=== PATIENT | female | born 1935 | race Two or more races ===

== ENCOUNTER 2021-06-02 20:03 | Emergency (ER) | payer SELFPAY ==
[~2021-06-02] VITALS: Ht 154.9 cm; Wt 58.3 kg
[2021-06-02 20:17] VITALS: BP 148/74
--- NOTE | 2021-06-02 20:20 | NUR ---
TO LOBBY A/W BED VIA WHEELCHAIR
[2021-06-02 23:05] VITALS: BP 169/89
--- NOTE | 2021-06-02 23:05 | NUR ---
85 YO F BIB SELF WITH C/C OF DIZZINESS X THIS MORNING. PT STATES SHE FEELS FINE, EVERYTHING IS THE SAME MINUS THE DIZZINESS AND A HEADACHE THAT SUBSIDED A FEW HOURS AGO. SHE STATED THAT SHE IS STILL HUNGRY, NO N/V, DENIES SOB. PT STATED SHE HAS BEEN HAVING ON AND OFF L EAR ACHE 5/10, NO CHANGES IN HEARING, NO DRAINAGE. BLOOD SUGAR 101, BP 169/89- PT JUST TOOK BP MEDS. HX: DM AND HTN RX: METFORMIN, GLIBENCLAMIDE, LOSARTAN, AMLODIPINE, CLONAZEPAM ALLERG DENIES
--- NOTE | 2021-06-02 23:49 | NUR ---
URINE TAKEN TO LAB.
[2021-06-02 23:55] LABS: BASOPHILS # (AUTO) 0.1 K/uL (0.00-0.22); BASOPHILS % (AUTO) 0.9 % (0.0-2.0); EOSINOPHILS # (AUTO) 0.2 K/uL (0-0.4); EOSINOPHILS % (AUTO) 2.3 % (0.0-4.0); HEMATOCRIT 37.1 % (36-48); HEMOGLOBIN 12.3 g/dL (12.0-16.0); LYMPHOCYTES # (AUTO) 3.5 K/uL (2.5-16.5); LYMPHOCYTES % (AUTO) 37.6 % (20.5-51.1); MEAN CORPUSCULAR HEMOGLOBIN 29 pg (27-31); MEAN CORPUSCULAR HGB CONC 33 g/dL (33-37); MEAN CORPUSCULAR VOLUME 86.1 fL (80-94); MONOCYTES # (AUTO) 0.7 K/uL (0.8-1.0); MONOCYTES % (AUTO) 7.4 % (1.7-9.3); NEUTROPHILS # (AUTO) 4.8 K/uL (1.8-7.7); NEUTROPHILS % (AUTO) 51.8 % (42.2-75.2); PLATELET COUNT (AUTO) 317 K/uL (140-450); RED BLOOD CELL COUNT(AUTO) 4.31 MIL/uL (4.20-5.40); RED CELL DISTRIBUTION WIDTH 14.8 % (11.6-13.7); WHITE BLOOD COUNT (AUTO) 9.2 K/uL (4.8-10.8)
[2021-06-03 00:12] LABS: APPEARANCE,URINE SL CLOUDY (CLEAR); BILIRUBIN,URINE NEGATIVE (NEGATIVE); BLOOD, URINE NEGATIVE (NEGATIVE); COLOR,URINE YELLOW (YELLOW); LEUKOCYTE ESTERASE ,URINE 2+ (NEGATIVE); NITRITE, URINE NEGATIVE (NEGATIVE); PH,URINE 5.5 (5.0-9.0); UGLUCOSE NEGATIVE (NEGATIVE)
[2021-06-03 00:14] LABS: ALBUMIN 3.7 g/dL (3.4-5.0); ASPARTATE AMINOTRANSFERASE 13 U/L (15-37); CARBON DIOXIDE 26.7 mmol/L (21-32); CHLORIDE 105 mmol/L (98-107); CREATININE 0.9 mg/dL (0.6-1.3); GLUCOSE 94 mg/dL (74-106); POTASSIUM 3.7 mmol/L (3.5-5.1); SODIUM SERUM 142 mmol/L (136-145); TOTAL BILIRUBIN 0.2 mg/dL (0.0-1.0); UREA NITROGEN, BLOOD 25 mg/dL (7-18)
[2021-06-03 00:17] LABS: CHOL/HDL RATIO 4.2 (1-4.5)
[2021-06-03 00:29] LABS: CREATINE KINASE MB 0.1 ng/mL (0-3.6)
[2021-06-03] MEDS ORDERED: NITR100C7 PO (01:00)
--- NOTE | 2021-06-03 01:13 | NUR ---
PT UP FOR DISCHARGE. PT GIVEN DISCHARGE INSTRUCTIONS AND MEDICATION INFORMATION BY DR. MIGUEL. RX OF MACROBID GIVEN. PT W/C ASSISTED TO PERSONAL VEHICLE.
[2021-06-03 01:24] LABS: RBC,URINE 0-5 /HPF (0-5); WBC,URINE 20-60 /HPF (0-5)
== END 2021-06-03 01:13 | disposition home or self-care (01) ==
LOC: MED 20:03
DX: N39.0 Urinary tract infection, site not specified (principal); R42 Dizziness and giddiness; I10 Essential (primary) hypertension
CPT/HCPCS: 36415; 70450; 71045; 80053; 80061; 81001; 82550; 82553; 83880; 84484; 85025; 85379; 87086; 93005; 99285; Q0092